=== PATIENT | male | born 1955 | race Caucasian/White ===

== ENCOUNTER 2017-02-07 18:57 | Observation (INO) | payer BC ==
[~2017-02-07] VITALS: Ht 182.9 cm; Wt 87.3 kg
[~2017-02-07 18:57] MED LIST: ADVAIR HFA120 INHALA IH; ALEVE220 MG PO; AMLODIPINE BESY10 MG PO; BISACODYL5 MG PO; DILAUDID1 MG/ML IV; DILAUDID2 MG PO; DILAUDID4 MG PO; HEPARIN SO5000 UNITS SC; INLYTA1 MG PO; LEVAQUIN500 MG PO; LOTREL 10/41 CAPSULE PO; LOTREL 5/201 CAPSULE PO; ONDANSETRON4 MG/2 ML IV; PANTOPRAZOLE SO40 MG PO; PROTONIX IV40 MG IV; TRAMADOL HCL50 MG PO; VENTOLIN HFA18 GM IH; VOTRIENT200 MG PO; ZOFRAN4 MG PO; ZOLPIDEM TARTRAT5 MG PO
[2017-02-07] MEDS ORDERED: CABOMETYX20 MG PO (19:29)
[2017-02-07] MEDS ORDERED: ZOFRAN4 MG PO (19:29)
[2017-02-07 19:48] LABS: EOSINOPHIL (%) 5.1 % (0-5); EOSINOPHIL COUNT 0.2 K/uL (0-0.3); HEMATOCRIT 30.3 % (38.0-50.0); INSTRUMENT ABS NEUTROPHIL CT 2.3 K/uL; LYMPHOCYTE COUNT 0.3 K/uL (1.0-2.8); MCH 30.5 PG (29.0-34.0); MCHC 32.7 G/DL (30.0-36.0); MCV 93.2 FL (86-99); MEAN PLAT.VOLUME 10.2 uM^3 (9.0-12.4); MONOCYTE (%) 7.1 % (3-12); MONOCYTE COUNT 0.2 K/uL (0-0.8); NEUTROPHIL COUNT 2.3 K/uL (1.8-6.4); PLATELET COUNT 55 K/uL (156-360); RBC DIS.WIDTH-CV 16.8 % (11.8-14.6); RBC DIS.WIDTH-SD 56.6 % (39-53); RED BLOOD COUNT 3.25 M/uL (4.00-5.50)
[2017-02-07 19:57] LABS: CHLORIDE 105 mEq/L (99-109); POTASSIUM 4.3 mEq/L (3.7-5.4); SODIUM 136 mEq/L (136-147)
[2017-02-07 20:01] LABS: ANION GAP 8 MEQ/L (2-14); GLUCOSE 96 mg/dL (70-99)
[2017-02-07 20:02] LABS: TOTAL BILIRUBIN 0.7 mg/dL (0.0-1.0)
[2017-02-07 20:03] LABS: ALKALINE PHOSPHATASE 109 IU/L (3-129); GFR ESTIMATE (CALCULATED) > 59 mL/min/
[2017-02-07 20:07] LABS: LIPASE 10 U/L (1.0-51.0)
[2017-02-07 20:08] LABS: TROP-I INTERPRETATION NEGATIVE; TROPONIN-I < 0.01 ng/mL (0.0-0.30); UREA NITROGEN (BUN) 23 mg/dL (9-23)
[2017-02-07] MEDS ORDERED: ZOFRAN8 MG PO (21:48)
[2017-02-07] MEDS ORDERED: DILAUDID2 MG PO (21:48)
[2017-02-07 23:38] VITALS: BP 133/80
[2017-02-08 01:05] LABS: TROP-I INTERPRETATION NEGATIVE; TROPONIN-I < 0.01 ng/mL (0.0-0.30)
[2017-02-08 03:35] VITALS: BP 122/75
[2017-02-08 04:01] LABS: ADD MIUA? NO; BILIRUBIN NEGATIVE; BLOOD NEGATIVE; COLOR YELLOW ((YELLOW)); GLUCOSE (STRIP) NEGATIVE; KETONES NEGATIVE; LEUKOCYTES NEGATIVE; NITRITE NEGATIVE; PROTEIN (STRIP) NEGATIVE; SPECIFIC GRAVITY 1.012 (1.000-1.030); UCUL ADDED? NO; UROBILINOGEN 0.2 MG/DL (0.2-1.0)
[2017-02-08 04:41] LABS: C DIFF TOXIN NEGATIVE (NEGATIVE)
[2017-02-08 04:53] LABS: PROBE CHECK PASS; SPECIMEN PROCESSING CONTROL PASS
[2017-02-08 06:48] LABS: HDL CHOLESTEROL 26 MG/DL (Desirable>=40); LDL CHOLESTEROL 60 mg/dL (Desirable<100); NON-HDL CHOLESTEROL 81 mg/dL (Desirable<160); TOTAL CHOLESTEROL 107 mg/dL (Desirable<200); TRIGLYCERIDES 103 MG/DL (Normal: <150)
[2017-02-08 07:40] LABS: TROP-I INTERPRETATION NEGATIVE; TROPONIN-I < 0.01 ng/mL (0.0-0.30)
[2017-02-08 09:37] VITALS: BP 105/68
[2017-02-08 11:44] VITALS: BP 105/61
== END 2017-02-08 12:31 | disposition home or self-care (01) ==
LOC: EME 18:57 → 5WEST 21:26 → EDOF 21:26 → 5WEST 22:45
PROVIDERS: Emergency Medicine; Physician Assistant Medical
DX: E86.0 Dehydration (principal); R55 Syncope and collapse; R19.7 Diarrhea, unspecified; C64.9 Malignant neoplasm of unspecified kidney, except renal pelvis; C79.51 Secondary malignant neoplasm of bone; I10 Essential (primary) hypertension; R94.31 Abnormal electrocardiogram [ECG] [EKG]; C77.2 Secondary and unspecified malignant neoplasm of intra-abdominal lymph nodes; C77.0 Secondary and unspecified malignant neoplasm of lymph nodes of head, face and neck; Z87.891 Personal history of nicotine dependence; D61.818 Other pancytopenia
CPT/HCPCS: 71020; 80053; 80061; 81003; 83605; 83690; 84484; 85025; 87493; 87506; 93005; 99281; 99285; G0378; J2405; J7030

== ENCOUNTER 2017-02-13 01:00 | Emergency (ER) | payer BC ==
[~2017-02-13] VITALS: Ht 182.9 cm; Wt 75.1 kg
[~2017-02-13 01:00] MED LIST changes: +CABOMETYX20 MG PO; +ZOFRAN8 MG PO
[2017-02-13 01:36] LABS: EOSINOPHIL (%) 4.1 % (0-5); EOSINOPHIL COUNT 0.1 K/uL (0-0.3); HEMATOCRIT 31.7 % (38.0-50.0); IMMATURE GRANULOCYTE (%) 0.3 % (0.0-0.7); LYMPHOCYTE COUNT 0.6 K/uL (1.0-2.8); MCH 30.7 PG (29.0-34.0); MCHC 33.8 G/DL (30.0-36.0); MCV 90.8 FL (86-99); MEAN PLAT.VOLUME 10.4 uM^3 (9.0-12.4); MONOCYTE (%) 8.4 % (3-12); MONOCYTE COUNT 0.3 K/uL (0-0.8); PLATELET COUNT 61 K/uL (156-360); RBC DIS.WIDTH-SD 55.7 % (39-53); RED BLOOD COUNT 3.49 M/uL (4.00-5.50)
[2017-02-13 01:51] LABS: CHLORIDE 104 mEq/L (99-109); POTASSIUM 3.3 mEq/L (3.7-5.4); SODIUM 138 mEq/L (136-147)
[2017-02-13 01:53] LABS: GLUCOSE 106 mg/dL (70-99)
[2017-02-13 01:55] LABS: ANION GAP 12 MEQ/L (2-14)
[2017-02-13 01:57] LABS: ALKALINE PHOSPHATASE 113 IU/L (3-129); GFR ESTIMATE (CALCULATED) > 59 mL/min/
[2017-02-13 01:58] LABS: UREA NITROGEN (BUN) 23 mg/dL (9-23)
[2017-02-13 02:01] LABS: LIPASE 9 U/L (1.0-51.0)
[2017-02-13 02:29] LABS: TOTAL BILIRUBIN 0.5 mg/dL (0.0-1.0)
[2017-02-13 04:28] LABS: ADD MIUA? NO; BILIRUBIN NEGATIVE; BLOOD NEGATIVE; COLOR YELLOW ((YELLOW)); GLUCOSE (STRIP) NEGATIVE; KETONES NEGATIVE; LEUKOCYTES NEGATIVE; NITRITE NEGATIVE; PROTEIN (STRIP) NEGATIVE; SPECIFIC GRAVITY 1.042 (1.000-1.030); UCUL ADDED? NO; UROBILINOGEN 0.2 MG/DL (0.2-1.0)
[2017-02-13 06:18] VITALS: BP 142/88
== END 2017-02-13 06:18 | disposition left against medical advice (07) ==
LOC: EME 01:00
PROVIDERS: Emergency Medicine
DX: K86.3 Pseudocyst of pancreas (principal); K83.8 Other specified diseases of biliary tract; R11.2 Nausea with vomiting, unspecified; R19.7 Diarrhea, unspecified; C64.1 Malignant neoplasm of right kidney, except renal pelvis; C79.51 Secondary malignant neoplasm of bone; M84.48XA Pathological fracture, other site, initial encounter for fracture; Z87.442 Personal history of urinary calculi; Z90.49 Acquired absence of other specified parts of digestive tract; Z72.0 Tobacco use
CPT/HCPCS: 74177; 80053; 81003; 83690; 85025; 99281; 99285; J2405; J3010; J7030

== ENCOUNTER 2017-11-24 17:36 | Emergency (ER) | payer OTHER ==
[~2017-11-24] VITALS: Ht 182.9 cm; Wt 79.6 kg
[2017-11-24 18:48] LABS: HEMATOCRIT 27.9 % (38.0-50.0); HEMOGLOBIN 9.5 G/DL (12.5-16.6); MCH 32.9 PG (29.0-34.0); MCHC 34.1 G/DL (30.0-36.0); MCV 96.5 FL (86-99); RBC DIS.WIDTH-CV 16.9 % (11.8-14.6); RBC DIS.WIDTH-SD 59.5 % (39-53); RED BLOOD COUNT 2.89 M/uL (4.00-5.50); WHITE BLOOD COUNT 3.4 K/uL (4.1-10.2)
[2017-11-24 19:06] LABS: CHLORIDE 104 mEq/L (99-109); SODIUM 143 mEq/L (136-147)
[2017-11-24 19:07] LABS: GLUCOSE 120 mg/dL (70-99)
[2017-11-24 19:11] LABS: CREATININE 0.9 mg/dL (0.6-1.3); GFR ESTIMATE (CALCULATED) > 59 mL/min/ (58.99-99999)
[2017-11-24 19:12] LABS: UREA NITROGEN (BUN) 13 mg/dL (9-23)
[2017-11-24 19:34] LABS: IMM.PLATELET FRACTION 6.7 (1-7); PLAT.SUFFICIENCY VERY DECREASED; PLATELET COUNT 46 K/uL (156-360)
[2017-11-24 21:10] VITALS: BP 130/93
[2017-11-26] MEDS ORDERED: LOTREL 5/201 CAPSULE PO (20:19)
== END 2017-11-24 21:21 | disposition home or self-care (01) ==
LOC: EME 17:36
PROVIDERS: Nurse Practitioner Family
DX: E86.0 Dehydration (principal); R22.1 Localized swelling, mass and lump, neck; Z85.528 Personal history of other malignant neoplasm of kidney; K20.8 Other esophagitis; Y84.2 Radiological procedure and radiotherapy as the cause of abnormal reaction of the patient, or of later complication, without mention of misadventure at the time of the procedure; D64.9 Anemia, unspecified; D69.6 Thrombocytopenia, unspecified; F17.200 Nicotine dependence, unspecified, uncomplicated; Z86.73 Personal history of transient ischemic attack (TIA), and cerebral infarction without residual deficits; I10 Essential (primary) hypertension
CPT/HCPCS: 80048; 85027; 86850; 86900; 86901; 99281; 99284; J7030

== ENCOUNTER 2018-01-27 23:44 | Emergency (ER) | payer OTHER ==
[~2018-01-27] VITALS: Ht 182.9 cm; Wt 79.5 kg
[2018-01-28 00:57] LABS: BASOPHIL (%) 0 % (0-1); EOSINOPHIL (%) 1.8 % (0-5); HEMATOCRIT 22.5 % (38.0-50.0); HEMOGLOBIN 7.7 G/DL (12.5-16.6); IMMATURE GRANULOCYTE (%) 0.6 % (0.0-0.7); INTER. NORMALIZED RATIO 1.3; LYMPHOCYTE (%) 11.2 % (15-42); LYMPHOCYTE COUNT 0.2 K/uL (1.0-2.8); MCH 31.8 PG (29.0-34.0); MCHC 34.2 G/DL (30.0-36.0); MONOCYTE (%) 17.6 % (3-12); MONOCYTE COUNT 0.3 K/uL (0-0.8); NEUTROPHIL (%) 68.8 % (45-76); NEUTROPHIL COUNT 1.2 K/uL (1.8-6.4); RBC DIS.WIDTH-CV 16.1 % (11.8-14.6); RBC DIS.WIDTH-SD 53.1 % (39-53); RED BLOOD COUNT 2.42 M/uL (4.00-5.50)
[2018-01-28 00:58] LABS: WHITE BLOOD COUNT 1.7 K/uL (4.1-10.2)
[2018-01-28 01:01] LABS: CHLORIDE 98 mEq/L (99-109); POTASSIUM 3.6 mEq/L (3.7-5.4); SODIUM 135 mEq/L (136-147)
[2018-01-28 01:02] LABS: GLUCOSE 157 mg/dL (70-99)
[2018-01-28 01:06] LABS: CREATININE 0.8 mg/dL (0.6-1.3); GFR ESTIMATE (CALCULATED) > 59 mL/min/ (58.99-99999)
[2018-01-28 01:07] LABS: UREA NITROGEN (BUN) 8 mg/dL (9-23)
[2018-01-28 01:11] LABS: TROP-I INTERPRETATION NEGATIVE; TROPONIN-I < 0.01 ng/mL (0.0-0.30)
[2018-01-28 01:35] LABS: PLAT.SUFFICIENCY DECREASED; PLATELET COUNT 45 K/uL (156-360)
[2018-01-28 04:38] VITALS: BP 132/80
== END 2018-01-28 04:45 | disposition home or self-care (01) ==
LOC: EME 23:44
PROVIDERS: Emergency Medicine
DX: R19.5 Other fecal abnormalities (principal); R60.0 Localized edema; D70.9 Neutropenia, unspecified; D64.9 Anemia, unspecified; J90 Pleural effusion, not elsewhere classified; C79.51 Secondary malignant neoplasm of bone; Z85.528 Personal history of other malignant neoplasm of kidney; Z98.890 Other specified postprocedural states; I10 Essential (primary) hypertension; Z87.891 Personal history of nicotine dependence; Z90.49 Acquired absence of other specified parts of digestive tract; Z86.73 Personal history of transient ischemic attack (TIA), and cerebral infarction without residual deficits; Z87.442 Personal history of urinary calculi; Z88.8 Allergy status to other drugs, medicaments and biological substances
CPT/HCPCS: 71275; 80048; 84484; 85025; 85610; 85730; 86850; 86900; 86901; 99281; 99285; J7030

== ENCOUNTER 2018-02-24 15:11 | Emergency (ER) | payer OTHER ==
[~2018-02-24] VITALS: Ht 182.9 cm; Wt 72.9 kg
[2018-02-24 18:27] LABS: HEMATOCRIT 27.6 % (38.0-50.0); HEMOGLOBIN 9.4 G/DL (12.5-16.6); MCH 31.8 PG (29.0-34.0); MCHC 34.1 G/DL (30.0-36.0); MCV 93.2 FL (86-99); PLATELET COUNT 61 K/uL (156-360); RBC DIS.WIDTH-CV 20.1 % (11.8-14.6); RBC DIS.WIDTH-SD 67.4 % (39-53); RED BLOOD COUNT 2.96 M/uL (4.00-5.50); WHITE BLOOD COUNT 6.1 K/uL (4.1-10.2)
[2018-02-24 18:31] LABS: BASOPHIL (%) 0.2 % (0-1); EOSINOPHIL (%) 0.5 % (0-5); IMMATURE GRANULOCYTE (%) 0.3 % (0.0-0.7); LYMPHOCYTE (%) 8.7 % (15-42); LYMPHOCYTE COUNT 0.5 K/uL (1.0-2.8); MONOCYTE (%) 9.2 % (3-12); MONOCYTE COUNT 0.6 K/uL (0-0.8); NEUTROPHIL (%) 81.1 % (45-76)
[2018-02-24 18:35] LABS: CHLORIDE 98 mEq/L (99-109)
[2018-02-24 18:36] LABS: POTASSIUM 4.4 mEq/L (3.7-5.4); SODIUM 134 mEq/L (136-147)
[2018-02-24 18:37] LABS: GLUCOSE 107 mg/dL (70-99)
[2018-02-24 18:41] LABS: CREATININE 0.9 mg/dL (0.6-1.3); GFR ESTIMATE (CALCULATED) > 59 mL/min/ (58.99-99999)
[2018-02-24 18:42] LABS: UREA NITROGEN (BUN) 16 mg/dL (9-23)
[2018-02-24 19:13] LABS: ERTH.SED.RATE 64 MM/HR (0-20)
[2018-02-24] MEDS ORDERED: OXYCODONE HCL5 MG PO (19:50)
[2018-02-24 20:05] VITALS: BP 115/86
== END 2018-02-24 20:12 | disposition home or self-care (01) ==
LOC: EME 15:11
PROVIDERS: Physician Assistant
DX: M54.5 Low back pain (principal); Z48.01 Encounter for change or removal of surgical wound dressing; Z98.890 Other specified postprocedural states; C64.9 Malignant neoplasm of unspecified kidney, except renal pelvis; C79.51 Secondary malignant neoplasm of bone; Z98.1 Arthrodesis status; Z87.442 Personal history of urinary calculi; I10 Essential (primary) hypertension; Z86.73 Personal history of transient ischemic attack (TIA), and cerebral infarction without residual deficits; Z90.49 Acquired absence of other specified parts of digestive tract; Z87.891 Personal history of nicotine dependence
CPT/HCPCS: 72070; 72100; 80048; 83605; 85025; 85651; 87040; 99281; 99284

== ENCOUNTER 2018-02-27 13:54 | Inpatient (IN) | payer OTHER ==
[~2018-02-27] VITALS: Ht 182.9 cm; Wt 71.9 kg
[~2018-02-27 13:54] MED LIST changes: +AMLODIPINE BESYL5 MG PO; +OXYCODONE HCL5 MG PO
[2018-02-27 19:32] LABS: APPEARANCE CLEAR ((CLEAR)); BILIRUBIN NEGATIVE; BLOOD NEGATIVE; COLOR YELLOW ((YELLOW)); GLUCOSE (STRIP) NEGATIVE; KETONES NEGATIVE; LEUKOCYTES NEGATIVE; NITRITE NEGATIVE; PROTEIN (STRIP) 30; SPECIFIC GRAVITY 1.019 (1.000-1.030); UCUL ADDED? NO
[2018-02-27 22:14] LABS: BASOPHIL (%) 0.3 % (0-1); EOSINOPHIL (%) 1.8 % (0-5); EOSINOPHIL COUNT 0.1 K/uL (0-0.3); HEMATOCRIT 24.3 % (38.0-50.0); HEMOGLOBIN 8.3 G/DL (12.5-16.6); IMMATURE GRANULOCYTE (%) 0.6 % (0.0-0.7); LYMPHOCYTE COUNT 0.5 K/uL (1.0-2.8); MCH 31.9 PG (29.0-34.0); MCHC 34.2 G/DL (30.0-36.0); MCV 93.5 FL (86-99); MONOCYTE (%) 9.6 % (3-12); MONOCYTE COUNT 0.3 K/uL (0-0.8); NEUTROPHIL (%) 72.7 % (45-76); NEUTROPHIL COUNT 2.4 K/uL (1.8-6.4); PLATELET COUNT 52 K/uL (156-360); RBC DIS.WIDTH-CV 19.6 % (11.8-14.6); RBC DIS.WIDTH-SD 67.1 % (39-53); WHITE BLOOD COUNT 3.3 K/uL (4.1-10.2)
[2018-02-27 22:37] LABS: INTER. NORMALIZED RATIO 1.4
[2018-02-27 22:39] LABS: PTT 28.3 SEC (25-37)
[2018-02-27 22:43] LABS: ALBUMIN 3.4 g/dL (3.2-4.8); CHLORIDE 100 mEq/L (99-109); POTASSIUM 3.9 mEq/L (3.7-5.4); SODIUM 137 mEq/L (136-147)
[2018-02-27 22:44] LABS: MAGNESIUM 1.7 mg/dL (1.3-2.7)
[2018-02-27 22:45] LABS: GLUCOSE 112 mg/dL (70-99); TOTAL PROTEIN 6.6 g/dL (6.4-8.3)
[2018-02-27 22:47] LABS: TOTAL BILIRUBIN 0.6 mg/dL (0.0-1.0)
[2018-02-27 22:49] LABS: ALKALINE PHOSPHATASE 118 IU/L (3-129); CREATININE 0.8 mg/dL (0.6-1.3); GFR ESTIMATE (CALCULATED) > 59 mL/min/ (58.99-99999)
[2018-02-27 22:50] LABS: UREA NITROGEN (BUN) 12 mg/dL (9-23)
[2018-02-27 22:51] LABS: AST (GOT) 18 IU/L (2-34)
[2018-02-27 22:52] LABS: ALT (GPT) 14 IU/L (3-49)
[2018-02-27] MEDS ORDERED: HYDROMORPHONE HC4 MG PO (23:03)
[2018-02-27] MEDS ORDERED: COLACE100 MG PO ×2 (23:04→23:05)
[2018-02-27] MEDS ORDERED: TYLENOL REGULA325 MG PO (23:05)
[2018-02-28 02:31] VITALS: BP 136/80
[2018-02-28 07:10] VITALS: BP 91/60
[2018-02-28 07:40] VITALS: BP 107/64
[2018-02-28 15:20] VITALS: BP 100/66
[2018-02-28 19:43] VITALS: BP 110/63
[2018-02-28 23:55] VITALS: BP 101/59
[2018-03-01] VITALS (7 sets, daily range): BP systolic 98–128; BP diastolic 61–75
[2018-03-01 07:02] LABS: CHLORIDE 100 MEQ/L (99-109); CREATININE 0.7 MG/DL (0.6-1.3); GFR ESTIMATE (CALCULATED) > 59 mL/min/ (58.99-99999); GLUCOSE 99 mg/dL (70-99); POTASSIUM 3.8 MEQ/L (3.7-5.4); SODIUM 135 MEQ/L (136-147); UREA NITROGEN (BUN) 11 mg/dL (9-23)
[2018-03-01 07:26] LABS: HEMATOCRIT 19.3 % (38.0-50.0); MCH 31.5 PG (29.0-34.0); MCHC 33.2 G/DL (30.0-36.0); MCV 95.1 FL (86-99); RBC DIS.WIDTH-CV 19.5 % (11.8-14.6); RBC DIS.WIDTH-SD 67.2 % (39-53); WHITE BLOOD COUNT 2.2 K/uL (4.1-10.2)
[2018-03-01 07:28] LABS: HEMOGLOBIN 6.4 G/DL (12.5-16.6); RED BLOOD COUNT 2.03 M/uL (4.00-5.50)
[2018-03-01 07:39] LABS: HEMATOLOGY COMMENT 1 SN; IMM.PLATELET FRACTION 3.3 (1-7); PLAT.SUFFICIENCY DECREASED; PLATELET COUNT 47 K/uL (156-360)
[2018-03-01 08:15] LABS: HEMATOCRIT 22.7 % (38.0-50.0); HEMOGLOBIN 7.6 G/DL (12.5-16.6); MCV 94.6 FL (86-99)
[2018-03-01] MEDS ORDERED: SENNA PLUS TAB1 EACH PO (09:52)
[2018-03-01] MEDS ORDERED: POLYETHYLENE GL17 GM PO (09:52)
[2018-03-01] MEDS ORDERED: FENTANYL1 EAC1 TD (09:54)
[2018-03-02 07:15] VITALS: BP 99/56
[2018-03-02 07:21] LABS: CHLORIDE 99 MEQ/L (99-109); CREATININE 0.8 MG/DL (0.6-1.3); GFR ESTIMATE (CALCULATED) > 59 mL/min/ (58.99-99999); GLUCOSE 105 mg/dL (70-99); POTASSIUM 3.9 MEQ/L (3.7-5.4); SODIUM 135 MEQ/L (136-147); UREA NITROGEN (BUN) 13 mg/dL (9-23)
[2018-03-02 07:43] LABS: BASOPHIL (%) 0 % (0-1); EOSINOPHIL (%) 3.2 % (0-5); EOSINOPHIL COUNT 0.1 K/uL (0-0.3); LYMPHOCYTE (%) 17.6 % (15-42); LYMPHOCYTE COUNT 0.4 K/uL (1.0-2.8); MCH 31.1 PG (29.0-34.0); MCHC 32.9 G/DL (30.0-36.0); MCV 94.6 FL (86-99); MONOCYTE COUNT 0.2 K/uL (0-0.8); NEUTROPHIL (%) 70.2 % (45-76); NEUTROPHIL COUNT 1.6 K/uL (1.8-6.4); PLATELET COUNT 59 K/uL (156-360); RBC DIS.WIDTH-CV 19.6 % (11.8-14.6); RBC DIS.WIDTH-SD 66.8 % (39-53); RED BLOOD COUNT 2.22 M/uL (4.00-5.50); WHITE BLOOD COUNT 2.2 K/uL (4.1-10.2)
[2018-03-02 07:44] LABS: HEMOGLOBIN 6.9 G/DL (12.5-16.6)
[2018-03-02] MEDS ORDERED: DILAUDID2 MG PO (10:44)
[2018-03-02 11:16] VITALS: BP 99/59
[2018-03-02 11:51] VITALS: BP 101/65
[2018-03-02 14:47] VITALS: BP 117/74
[2018-03-02 15:12] LABS: HEMATOCRIT 26.3 % (38.0-50.0); HEMOGLOBIN 8.7 G/DL (12.5-16.6); MCV 94.3 FL (86-99)
[2018-03-02 15:18] VITALS: BP 110/74
[2018-03-02 15:20] VITALS: BP 108/74
[2018-03-03 00:31] VITALS: BP 113/69
[2018-03-03 06:46] LABS: BASOPHIL (%) 0.5 % (0-1); EOSINOPHIL (%) 3.3 % (0-5); EOSINOPHIL COUNT 0.1 K/uL (0-0.3); HEMATOCRIT 23.3 % (38.0-50.0); HEMOGLOBIN 7.8 G/DL (12.5-16.6); IMMATURE GRANULOCYTE (%) 0.5 % (0.0-0.7); LYMPHOCYTE (%) 18.1 % (15-42); LYMPHOCYTE COUNT 0.4 K/uL (1.0-2.8); MCH 31.3 PG (29.0-34.0); MCHC 33.5 G/DL (30.0-36.0); MCV 93.6 FL (86-99); MONOCYTE (%) 11.2 % (3-12); MONOCYTE COUNT 0.2 K/uL (0-0.8); NEUTROPHIL (%) 66.4 % (45-76); NEUTROPHIL COUNT 1.4 K/uL (1.8-6.4); PLATELET COUNT 58 K/uL (156-360); RBC DIS.WIDTH-CV 18.4 % (11.8-14.6); RED BLOOD COUNT 2.49 M/uL (4.00-5.50); WHITE BLOOD COUNT 2.2 K/uL (4.1-10.2)
[2018-03-03 07:15] VITALS: BP 110/73
[2018-03-03] MEDS ORDERED: BACLOFEN10 MG PO (11:19)
[2018-03-03] MEDS ORDERED: NAPROXEN500 MG PO (11:19)
[2018-03-03] MEDS ORDERED: HYDROMORPHONE HC2 MG PO (11:20)
[2018-03-03 15:15] VITALS: BP 118/74
[2018-03-03 23:17] VITALS: BP 117/73
[2018-03-04 06:08] LABS: BASOPHIL (%) 0.4 % (0-1); EOSINOPHIL (%) 3.6 % (0-5); EOSINOPHIL COUNT 0.1 K/uL (0-0.3); HEMATOCRIT 22.8 % (38.0-50.0); HEMOGLOBIN 7.6 G/DL (12.5-16.6); IMMATURE GRANULOCYTE (%) 0.4 % (0.0-0.7); LYMPHOCYTE (%) 18.3 % (15-42); LYMPHOCYTE COUNT 0.5 K/uL (1.0-2.8); MCH 31.4 PG (29.0-34.0); MCHC 33.3 G/DL (30.0-36.0); MCV 94.2 FL (86-99); MONOCYTE (%) 10.4 % (3-12); MONOCYTE COUNT 0.3 K/uL (0-0.8); NEUTROPHIL (%) 66.9 % (45-76); NEUTROPHIL COUNT 1.7 K/uL (1.8-6.4); RBC DIS.WIDTH-CV 18.6 % (11.8-14.6); RBC DIS.WIDTH-SD 63.6 % (39-53); RED BLOOD COUNT 2.42 M/uL (4.00-5.50); WHITE BLOOD COUNT 2.5 K/uL (4.1-10.2)
[2018-03-04 06:38] LABS: IMM.PLATELET FRACTION 3.5 (1-7); PLATELET COUNT 56 K/uL (156-360)
[2018-03-04 06:45] LABS: CHLORIDE 104 MEQ/L (99-109); CREATININE 0.7 MG/DL (0.6-1.3); GFR ESTIMATE (CALCULATED) > 59 mL/min/ (58.99-99999); GLUCOSE 103 mg/dL (70-99); POTASSIUM 4.2 MEQ/L (3.7-5.4); SODIUM 138 MEQ/L (136-147); UREA NITROGEN (BUN) 12 mg/dL (9-23)
[2018-03-04 07:11] VITALS: BP 100/62
[2018-03-04] MEDS ORDERED: PERCOCET 10/1 TABLET PO (08:17)
[2018-03-04] MEDS ORDERED: FENTANYL1 EAC1 TD (08:19)
== END 2018-03-04 11:01 | disposition home or self-care (01) | DRG 947 ==
LOC: EME 13:54 → 5EAST 23:50 → EDOF 23:50 → ENRESERV 23:56 → 5EAST 02-28 02:20 → ENPENDDIS 03-04 → 5EAST 03-04 11:01
PROVIDERS: Emergency Medicine; Hospitalist; Internal Medicine
PROC: 30233R1 Transfusion of Nonautologous Platelets into Peripheral Vein, Percutaneous Approach (ICD-10-PCS; 2018-03-01)
PROC: 30233N1 Transfusion of Nonautologous Red Blood Cells into Peripheral Vein, Percutaneous Approach (ICD-10-PCS; principal; 2018-03-02)
DX: G89.3 Neoplasm related pain (acute) (chronic) (principal); D61.810 Antineoplastic chemotherapy induced pancytopenia; T45.1X5A Adverse effect of antineoplastic and immunosuppressive drugs, initial encounter; C64.1 Malignant neoplasm of right kidney, except renal pelvis; C79.51 Secondary malignant neoplasm of bone; Z98.1 Arthrodesis status; D61.818 Other pancytopenia; T81.89XA Other complications of procedures, not elsewhere classified, initial encounter; I10 Essential (primary) hypertension; K59.00 Constipation, unspecified; Z87.891 Personal history of nicotine dependence; G47.00 Insomnia, unspecified; Z86.718 Personal history of other venous thrombosis and embolism
CPT/HCPCS: 72131; 74176; 80048; 80053; 81003; 83735; 85014; 85018; 85025; 85027; 85610; 85730; 86850; 86900; 86901; 86920; 87040; 99281; 99285; G0378; J1644; J1885; J2060; J2270; J3010; J7030; J7050; J7120; P9016; P9035

== ENCOUNTER 2018-04-13 05:30 | Emergency (ER) | payer OTHER ==
[~2018-04-13] VITALS: Ht 182.9 cm; Wt 72.2 kg
[~2018-04-13 05:30] MED LIST changes: +BACLOFEN10 MG PO; +COLACE100 MG PO; +FENTANYL1 EAC1 TD; +HYDROMORPHONE HC2 MG PO; +HYDROMORPHONE HC4 MG PO; +NAPROXEN500 MG PO; +PERCOCET 10/1 TABLET PO; +POLYETHYLENE GL17 GM PO; +SENNA PLUS TAB1 EACH PO; +TYLENOL REGULA325 MG PO
[2018-04-13 06:24] LABS: HEMATOCRIT 22.8 % (38.0-50.0); MCH 31.9 PG (29.0-34.0); MCHC 32.9 G/DL (30.0-36.0); PLATELET COUNT 57 K/uL (156-360); RBC DIS.WIDTH-SD 57.5 % (39-53); WHITE BLOOD COUNT 3.9 K/uL (4.1-10.2)
[2018-04-13 06:26] LABS: HEMOGLOBIN 7.5 G/DL (12.5-16.6); RED BLOOD COUNT 2.35 M/uL (4.00-5.50)
[2018-04-13 06:33] LABS: CHLORIDE 101 mEq/L (99-109); SODIUM 136 mEq/L (136-147)
[2018-04-13 06:35] LABS: GLUCOSE 119 mg/dL (70-99); TOTAL PROTEIN 6.4 g/dL (6.4-8.3)
[2018-04-13 06:37] LABS: TOTAL BILIRUBIN 0.6 mg/dL (0.0-1.0)
[2018-04-13 06:38] LABS: ALKALINE PHOSPHATASE 88 IU/L (3-129)
[2018-04-13 06:39] LABS: CREATININE 0.7 mg/dL (0.6-1.3); GFR ESTIMATE (CALCULATED) > 59 mL/min/ (58.99-99999)
[2018-04-13 06:40] LABS: AST (GOT) 10 IU/L (2-34); UREA NITROGEN (BUN) 17 mg/dL (9-23)
[2018-04-13 06:41] LABS: ALT (GPT) 6 IU/L (3-49)
[2018-04-13 06:42] LABS: LIPASE 3 U/L (1.0-51.0)
[2018-04-13 06:45] LABS: TROP-I INTERPRETATION NEGATIVE; TROPONIN-I < 0.01 ng/mL (0.0-0.30)
[2018-04-13] MEDS ORDERED: BACLOFEN10 MG PO (09:57)
[2018-04-13] MEDS ORDERED: HYDROMORPHONE HC2 MG PO (09:58)
[2018-04-13] MEDS ORDERED: FENTANYL1 EAC5 TD (09:59)
[2018-04-13] MEDS ORDERED: GABAPENTIN300 MG PO (10:00)
[2018-04-13] MEDS ORDERED: MIRTAZAPINE15 MG PO (10:09)
[2018-04-13] MEDS ORDERED: DECADRON4 M1 PO (10:54)
[2018-04-13 11:43] VITALS: BP 115/85
== END 2018-04-13 11:50 | disposition home or self-care (01) ==
LOC: EME → EDBD 05:30 → EME 05:30
PROVIDERS: Emergency Medicine
DX: M54.5 Low back pain (principal); R10.9 Unspecified abdominal pain; C79.51 Secondary malignant neoplasm of bone; Z85.528 Personal history of other malignant neoplasm of kidney; Z98.890 Other specified postprocedural states; Z91.19 Patient's noncompliance with other medical treatment and regimen; I70.0 Atherosclerosis of aorta; J98.11 Atelectasis; I10 Essential (primary) hypertension; Z86.73 Personal history of transient ischemic attack (TIA), and cerebral infarction without residual deficits; Z87.442 Personal history of urinary calculi; Z90.49 Acquired absence of other specified parts of digestive tract; Z87.891 Personal history of nicotine dependence
CPT/HCPCS: 71046; 72132; 74177; 80053; 83690; 84484; 85027; 93005; 99281; 99284; J1100; J2270; J2405; J7030

== ENCOUNTER 2018-04-19 10:23 | Emergency (ER) | payer OTHER ==
[~2018-04-19] VITALS: Ht 182.9 cm; Wt 68.7 kg
[~2018-04-19 10:23] MED LIST changes: +DECADRON4 M1 PO; +FENTANYL1 EAC5 TD; +GABAPENTIN300 MG PO; +MIRTAZAPINE15 MG PO
[2018-04-19 10:50] LABS: BASOPHIL (%) 0 % (0-1); EOSINOPHIL (%) 0 % (0-5); HEMATOCRIT 25.3 % (38.0-50.0); HEMOGLOBIN 8.2 G/DL (12.5-16.6); IMMATURE GRANULOCYTE (%) 1.4 % (0.0-0.7); LYMPHOCYTE (%) 3.9 % (15-42); LYMPHOCYTE COUNT 0.3 K/uL (1.0-2.8); MCH 31.3 PG (29.0-34.0); MCHC 32.4 G/DL (30.0-36.0); MCV 96.6 FL (86-99); MONOCYTE (%) 6.8 % (3-12); MONOCYTE COUNT 0.5 K/uL (0-0.8); NEUTROPHIL (%) 87.9 % (45-76); NEUTROPHIL COUNT 6.7 K/uL (1.8-6.4); RBC DIS.WIDTH-CV 16.1 % (11.8-14.6); RBC DIS.WIDTH-SD 54.9 % (39-53); RED BLOOD COUNT 2.62 M/uL (4.00-5.50); WHITE BLOOD COUNT 7.6 K/uL (4.1-10.2)
[2018-04-19 10:56] LABS: ALBUMIN 3.2 g/dL (3.2-4.8); CHLORIDE 99 mEq/L (99-109); SODIUM 134 mEq/L (136-147)
[2018-04-19 10:58] LABS: GLUCOSE 383 mg/dL (70-99)
[2018-04-19 10:59] LABS: TOTAL PROTEIN 6.1 g/dL (6.4-8.3)
[2018-04-19 11:00] LABS: TOTAL BILIRUBIN 0.5 mg/dL (0.0-1.0)
[2018-04-19 11:02] LABS: ALKALINE PHOSPHATASE 99 IU/L (3-129); GFR ESTIMATE (CALCULATED) > 59 mL/min/ (58.99-99999)
[2018-04-19 11:03] LABS: UREA NITROGEN (BUN) 33 mg/dL (9-23)
[2018-04-19 11:04] LABS: AST (GOT) 12 IU/L (2-34)
[2018-04-19 11:05] LABS: ALT (GPT) 11 IU/L (3-49)
[2018-04-19 11:06] LABS: LIPASE 10 U/L (1.0-51.0)
[2018-04-19 11:18] LABS: PLATELET COUNT 55 K/uL (156-360)
[2018-04-19 11:56] LABS: APPEARANCE CLEAR ((CLEAR)); BILIRUBIN NEGATIVE; BLOOD NEGATIVE; COLOR YELLOW ((YELLOW)); GLUCOSE (STRIP) >=500; KETONES NEGATIVE; LEUKOCYTES NEGATIVE; NITRITE NEGATIVE; PROTEIN (STRIP) 30; SPECIFIC GRAVITY 1.021 (1.000-1.030); UCUL ADDED? NO; UROBILINOGEN 0.2 MG/DL (0.2-1.0)
[2018-04-19 13:02] VITALS: BP 124/83
== END 2018-04-19 13:02 | disposition home or self-care (01) ==
LOC: EME 10:23
PROVIDERS: Emergency Medicine
DX: G89.3 Neoplasm related pain (acute) (chronic) (principal); C79.51 Secondary malignant neoplasm of bone; C64.9 Malignant neoplasm of unspecified kidney, except renal pelvis; I10 Essential (primary) hypertension; F41.9 Anxiety disorder, unspecified; Z87.442 Personal history of urinary calculi; Z86.73 Personal history of transient ischemic attack (TIA), and cerebral infarction without residual deficits; Z87.891 Personal history of nicotine dependence; Z90.49 Acquired absence of other specified parts of digestive tract; Z88.8 Allergy status to other drugs, medicaments and biological substances
CPT/HCPCS: 72100; 80053; 81003; 83690; 85025; 99281; 99284; J1170; J1885

== ENCOUNTER → 2018-04-21 | Outpatient (CLI) | payer OTHER | END | disposition home or self-care (01) | LOC: RAD 11:14 | DX: M48.55XA Collapsed vertebra, not elsewhere classified, thoracolumbar region, initial encounter for fracture (principal); C79.51 Secondary malignant neoplasm of bone; M51.84 Other intervertebral disc disorders, thoracic region | CPT/HCPCS: 72129; 72132 ==

== ENCOUNTER 2018-04-28 10:12 | Emergency (ER) | payer OTHER ==
[~2018-04-28] VITALS: Ht 182.9 cm; Wt 66.8 kg
[2018-04-28 11:17] LABS: BASOPHIL (%) 0 % (0-1); EOSINOPHIL (%) 0.4 % (0-5); HEMATOCRIT 22.5 % (38.0-50.0); HEMOGLOBIN 7.3 G/DL (12.5-16.6); IMMATURE GRANULOCYTE (%) 0.8 % (0.0-0.7); LYMPHOCYTE (%) 7.2 % (15-42); LYMPHOCYTE COUNT 0.4 K/uL (1.0-2.8); MCH 31.3 PG (29.0-34.0); MCHC 32.4 G/DL (30.0-36.0); MCV 96.6 FL (86-99); MONOCYTE (%) 7.9 % (3-12); MONOCYTE COUNT 0.4 K/uL (0-0.8); NEUTROPHIL (%) 83.7 % (45-76); NEUTROPHIL COUNT 4.1 K/uL (1.8-6.4); PLATELET COUNT 59 K/uL (156-360); RBC DIS.WIDTH-CV 16.1 % (11.8-14.6); RBC DIS.WIDTH-SD 56.9 % (39-53); RED BLOOD COUNT 2.33 M/uL (4.00-5.50); WHITE BLOOD COUNT 4.8 K/uL (4.1-10.2)
[2018-04-28 11:25] LABS: ALBUMIN 2.6 g/dL (3.2-4.8)
[2018-04-28 11:26] LABS: CHLORIDE 97 mEq/L (99-109); POTASSIUM 3.8 mEq/L (3.7-5.4); SODIUM 132 mEq/L (136-147)
[2018-04-28 11:28] LABS: GLUCOSE 168 mg/dL (70-99)
[2018-04-28 11:30] LABS: TOTAL BILIRUBIN 0.8 mg/dL (0.0-1.0)
[2018-04-28 11:31] LABS: ALKALINE PHOSPHATASE 91 IU/L (3-129)
[2018-04-28 11:32] LABS: CREATININE 0.9 mg/dL (0.6-1.3); GFR ESTIMATE (CALCULATED) > 59 mL/min/ (58.99-99999)
[2018-04-28 11:33] LABS: AST (GOT) 12 IU/L (2-34); UREA NITROGEN (BUN) 14 mg/dL (9-23)
[2018-04-28 11:34] LABS: ALT (GPT) 11 IU/L (3-49)
[2018-04-28] MEDS ORDERED: BACTRIM,SEPT1 TABLET PO (17:24)
[2018-04-28 18:14] VITALS: BP 107/80
== END 2018-04-28 18:16 | disposition home or self-care (01) ==
LOC: EME 10:12
PROVIDERS: Emergency Medicine
DX: T81.4XXA Infection following a procedure, initial encounter (principal); G89.3 Neoplasm related pain (acute) (chronic); Y83.8 Other surgical procedures as the cause of abnormal reaction of the patient, or of later complication, without mention of misadventure at the time of the procedure; Z85.528 Personal history of other malignant neoplasm of kidney; Z85.830 Personal history of malignant neoplasm of bone; I10 Essential (primary) hypertension; F41.9 Anxiety disorder, unspecified; Z86.73 Personal history of transient ischemic attack (TIA), and cerebral infarction without residual deficits; Z87.442 Personal history of urinary calculi; F17.200 Nicotine dependence, unspecified, uncomplicated; Z90.49 Acquired absence of other specified parts of digestive tract; Z88.8 Allergy status to other drugs, medicaments and biological substances
CPT/HCPCS: 72157; 80053; 83605; 85025; 99281; 99285; J1170; J1885